=== PATIENT | male | born 1940 | race Caucasian/White ===

== ENCOUNTER 2017-02-23 21:28 | Emergency (ER) | payer MEDICARE ==
[~2017-02-23] VITALS: Ht 185.4 cm; Wt 79.4 kg
[2017-02-23 22:09] VITALS: BP 198/95
[2017-02-23] MEDS ORDERED: LIDOCAINE/EPI/TETRACAINE TOPICAL GEL 3 ML. TP ONE (23:00)
[2017-02-23] MEDS ORDERED: LIDOCAINE 1% / SOD BICARB 8.4% 20 ML VIAL. IJ ONE (23:00)
--- NOTE | 2017-02-24 00:06 | PHYS DOC ---
Past Medical History Past Medical History: Cancer, Diabetes-Type II Past Surgical History: Other Additional Past Surgical Histo: GROIN Alcohol Use: None Drug Use: None Adult General Chief Complaint Chief Complaint: LACERATION/AVULSION HPI HPI Patient is a 76 year old male with hx of DMII, cancer who presents with left ordoñez laceration. Patient states he was cut by a barbed wire Review of Systems Review of Systems Constitutional: Denies fever or chills [] Eyes: Denies change in visual acuity, redness, or eye pain [] HENT: Denies nasal congestion or sore throat [] Musculoskeletal: Denies back pain or joint pain [] Integument: left ordoñez laceration Neurologic: Denies headache, focal weakness or sensory changes [] Endocrine: Denies polyuria or polydipsia [] Current Medications Current Medications Current Medications Medications (Trade) Dose Ordered Sig/Mel Start Time Stop Time Status Last Admin Dose Admin Lidocaine/ Epinephrine (Let Topical) 3 ml 1X ONCE 02/23/17 23:00 02/23/17 23:01 DC 02/23/17 23:00 3 ML Lidocaine/Sodium Bicarbonate (Buffered Lidocaine 1%) 20 ml 1X ONCE 02/23/17 23:00 02/23/17 23:01 DC 02/23/17 23:00 20 ML Allergies Allergies Allergies Coded Allergies Type Severity Reaction Last Updated Verified Sulfa (Sulfonamide Antibiotics) Allergy Intermediate 02/23/17 Yes caffeine Allergy Intermediate 02/23/17 Yes iodine Allergy Intermediate 02/23/17 Yes Physical Exam Physical Exam Constitutional: Well developed, well nourished, no acute distress, non-toxic appearance. [] HENT: Normocephalic, atraumatic, bilateral external ears normal, oropharynx moist, no oral exudates, nose normal. [] Eyes: PERRLA, EOMI, conjunctiva normal, no discharge. [] Skin: Left distal anterior ordoñez with 2 lacerations. First laceration is straight and is approximately 6 cm long, second laceration is a skin avulsion approximately 5 x 5 cm. There is no tendon involvement. Full range of motion to the left lower extremity. +2 left pedal pulse. Cap refill less than 2 seconds the left lower extremity. Sensation intact to the left lower extremity Back: No tenderness, no CVA tenderness. [] Extremities: No tenderness, no cyanosis, no clubbing, ROM intact, no edema. [] Neurologic: Alert and oriented X 3, normal motor function, normal sensory function, no focal deficits noted. [] Psychologic: Affect normal, judgement normal, mood normal. [] Current Patient Data Vital Signs Vital Signs Date Time Temp Pulse Resp B/P (MAP) Pulse Ox O2 Delivery O2 Flow Rate FiO2 02/23/17 22:09 98.9 81 18 96 Room Air 98.9 EKG EKG [] Radiology/Procedures Radiology/Procedures Indication:ordoñez laceration left Procedure: The patient was placed in the appropriate position and anesthesia around the lacerations was let then buffered lidocaine. The area was then cleaned with 240 ML of normal saline and Betadine. The laceration 6 cm laceration was closed with 10 interrupted sutures using 5. 0 Ethilon, 5 x 5 cm laceration was partially closed with 7 interrupted sutures using 5. 0 Ethilon. Part of the wound was left open because the skin could not come together. The wound was covered with nonstick dressing. Course & Med Decision Making Course & Med Decision Making Pertinent Labs and Imaging studies reviewed. (See chart for details) Patient has 2 lacerations on the left lower extremity which were partially closed by me as noted in procedures. Tetanus is up-to-date. Provided instructions to follow-up with the wound clinic as soon as possible Dragon Disclaimer Dragon Disclaimer This electronic medical record was generated, in whole or in part, using a voice recognition dictation system. Departure Departure Impression: Primary Impression: Leg laceration Disposition: 01 HOME, SELF-CARE Condition: STABLE Referrals: DEION FREGOSO MD (PCP) Please follow up with the wound clinic at [place] [phone] Patient Instructions: Laceration Care, Adult, [id number] Additional Instructions: You were seen for left leg laceration that was partially closed. Keep the area clean and dry. Apply Neosporin to the area once or twice a day. Follow-up with the wound clinic at [facility], call the office tomorrow to get a follow-up appointment, . Problem Qualifiers Primary Impression: Leg laceration Encounter type: initial encounter Laterality: left Qualified Codes: S81.812A - Laceration without foreign body, left lower leg, initial encounter LUCIO WALTER REH[facility] CARE ASSISTANT February 24, 2017 00:06
== END 2017-02-24 00:14 | disposition home or self-care (01) ==
LOC: ER 21:28
DX: S81.812A Laceration without foreign body, left lower leg, initial encounter (principal); E11.9 Type 2 diabetes mellitus without complications; Z88.2 Allergy status to sulfonamides; Z88.8 Allergy status to other drugs, medicaments and biological substances; Z91.018 Allergy to other foods; W26.8XXA Contact with other sharp object(s), not elsewhere classified, initial encounter; Y93.89 Activity, other specified; Y92.89 Other specified places as the place of occurrence of the external cause; Y99.8 Other external cause status
CPT/HCPCS: 12007; 99283-25

== ENCOUNTER → 2017-02-25 | Outpatient (CLI) | payer MEDICARE ==
[2017-02-23 22:09] VITALS: BP 198/95
== END | disposition home or self-care (01) ==
LOC: PMGWOUND 09:18
PROVIDERS: ATTEND Preventive Medicine Undersea and Hyperbaric Medicine
DX: S81.812A Laceration without foreign body, left lower leg, initial encounter (principal); E11.9 Type 2 diabetes mellitus without complications; I10 Essential (primary) hypertension; W45.8XXA Other foreign body or object entering through skin, initial encounter; Y93.89 Activity, other specified; Y92.89 Other specified places as the place of occurrence of the external cause; Y99.8 Other external cause status
CPT/HCPCS: 99214

== ENCOUNTER → 2017-03-11 | Outpatient (CLI) | payer MEDICARE ==
[2017-02-23 22:09] VITALS: BP 198/95
== END | disposition home or self-care (01) ==
LOC: PMGWOUND 08:58
PROVIDERS: ATTEND Preventive Medicine Undersea and Hyperbaric Medicine
DX: S81.812D Laceration without foreign body, left lower leg, subsequent encounter (principal); I10 Essential (primary) hypertension; E11.9 Type 2 diabetes mellitus without complications; X58.XXXD Exposure to other specified factors, subsequent encounter
CPT/HCPCS: 99214

== ENCOUNTER → 2017-03-18 | Outpatient (CLI) | payer MEDICARE ==
[2017-02-23 22:09] VITALS: BP 198/95
== END | disposition home or self-care (01) ==
LOC: PMGWOUND 08:49
PROVIDERS: ATTEND Preventive Medicine Undersea and Hyperbaric Medicine
DX: S80.812D Abrasion, left lower leg, subsequent encounter (principal); I10 Essential (primary) hypertension; E11.9 Type 2 diabetes mellitus without complications; X58.XXXD Exposure to other specified factors, subsequent encounter
CPT/HCPCS: 99214

== ENCOUNTER → 2017-04-01 | Outpatient (CLI) | payer MEDICARE | END | disposition home or self-care (01) | LOC: PMGWOUND 09:19 | PROVIDERS: ATTEND Preventive Medicine Undersea and Hyperbaric Medicine | DX: S80.812D Abrasion, left lower leg, subsequent encounter (principal); I10 Essential (primary) hypertension; E11.9 Type 2 diabetes mellitus without complications; X58.XXXD Exposure to other specified factors, subsequent encounter | CPT/HCPCS: 97597; 99214 ==

== ENCOUNTER → 2017-04-22 | Outpatient (CLI) | payer MEDICARE | END | disposition home or self-care (01) | LOC: PMGWOUND 07:56 | PROVIDERS: ATTEND Preventive Medicine Undersea and Hyperbaric Medicine | DX: S81.812D Laceration without foreign body, left lower leg, subsequent encounter (principal); I10 Essential (primary) hypertension; E11.9 Type 2 diabetes mellitus without complications; Z88.8 Allergy status to other drugs, medicaments and biological substances; Z88.2 Allergy status to sulfonamides; X58.XXXD Exposure to other specified factors, subsequent encounter | CPT/HCPCS: 99212 ==

== ENCOUNTER → 2018-05-05 | Outpatient (CLI) | payer MEDICARE | END | disposition home or self-care (01) | LOC: PMGWOUND 09:58 | DX: S91.115A Laceration without foreign body of left lesser toe(s) without damage to nail, initial encounter (principal); I10 Essential (primary) hypertension; E11.9 Type 2 diabetes mellitus without complications; Z88.8 Allergy status to other drugs, medicaments and biological substances; Z88.2 Allergy status to sulfonamides; X58.XXXA Exposure to other specified factors, initial encounter; Y93.89 Activity, other specified; Y92.89 Other specified places as the place of occurrence of the external cause; Y99.8 Other external cause status | CPT/HCPCS: 99214 ==